=== PATIENT | male | born 1990 | race Caucasian/White ===

== ENCOUNTER 2016-06-16 18:58 | Emergency (ER) | payer BC ==
[2016-06-16 19:22] VITALS: BP 134/85
--- NOTE | 2016-06-16 19:31 | UC ---
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 3 month hx of intermittent right shoulder pain - History of Current Complaint Chief Complaint: UCUpperExtremity Stated Complaint: SHOULDER PAIN Time Seen by Provider: 06/16/16 19:24 Hx Obtained From: Patient Onset/Duration: Gradual Onset, Lasting Days Timing: Constant Severity Initially: Moderate Severity Currently: Moderate Location Of Pain: Is Diffuse Pain Intensity: 4 - at rest Pain Scale Used: 0-10 Numeric Character: Sharp, Dull, Aching Aggravating Factor(s): Movement, Lifting, Internal Rotation, External Rotation, Abduction Alleviating Factor(s): Rest Associated Signs And Symptoms: Positive: Negative Related History: Dominant Hand Right - Allergies/Home Medications Allergies/Adverse Reactions: Allergies Allergy/AdvReac Type Severity Reaction Status Date / Time No Known Allergies Allergy Verified 06/16/16 19:22 PMH/Surg Hx/FS Hx/Imm Hx Previously Healthy: Yes - Surgical History Surgical History: Yes Surgery Procedure, Year, and Place: [facility] - Family History Known Family History: Negative: Cardiac Disease, Hypertension, Diabetes, Blood Disorder - Social History Alcohol Use: Rare Substance Use Type: Marijuana Substance Use Comment - Amount & Last Used: Daily Smoking Status (MU): Smoker, Current Status Unknown Type: Smokeless Tobacco Household Exposure Type: Cigarettes Review of Systems Constitutional: Negative Skin: Negative Eyes: Negative ENT: Negative Respiratory: Negative Cardiovascular: Negative Gastrointestinal: Negative Genitourinary: Negative Motor: Negative Neurovascular: Negative Musculoskeletal: Arthralgia Neurological: Negative Psychological: Negative All Other Systems Reviewed And Are Negative: Yes Physical Exam Triage Information Reviewed: Yes Appearance: Well-Appearing, No Pain Distress, Well-Nourished Vital Signs: Initial Vital Signs Temp 99.4 F 06/16/16 19:18 Pulse 81 06/16/16 19:18 Resp 16 06/16/16 19:18 BP 134/85 06/16/16 19:18 Pulse Ox 98 06/16/16 19:18 Vital Signs Reviewed: Yes Eyes: Positive: Conjunctiva Clear ENT: Positive: Hearing grossly normal, Pharynx normal. Negative: Nasal congestion, TMs normal, Tonsillar exudate, Trismus, Muffled/hoarse voice Neck: Positive: Supple, Nontender Respiratory: Positive: Lungs clear, Normal breath sounds, No respiratory distress Cardiovascular: Positive: RRR, No Murmur Musculoskeletal: Positive: ROM Limited @ - right shoulder-able to abdu, Other: - see image Neurological: Positive: Alert Psychological Exam: Normal Skin Exam: Normal Shoulder Course/Dx - Differential Dx/Diagnosis Provider Diagnoses: right shoulder tendonitis. right rhomboid myofascial strain /spasm Discharge - Discharge Plan Condition: Stable Disposition: HOME Prescriptions: Cyclobenzaprine TAB* [Flexeril 10 MG TAB*] 5 mg PO TID PRN #21 tab PRN Reason: Spasms Naproxen [Naproxen 500 MG TABS] 500 mg PO BID PRN #30 tab PRN Reason: Pain Patient Education Materials: Muscle Strain (ED), Tendinitis (ED) Forms: *Work Release Referrals: [facility] [place] [facility] REFERRAL [Outside] - If Needed Richmond Anna MD [Medical Doctor] - 1 Week (if not better orthopedist) Additional Instructions: rest heat Images Front/Back of Body, Lg ([place]): 1 - tender here 2 - pain here
--- NOTE | 2016-06-16 19:53 | RAD ---
INDICATION: Chronic intermittent right shoulder pain. TECHNIQUE: 3 views of the right shoulder were obtained. FINDINGS: The bones are in normal alignment. No fracture is seen. Joint spaces appear maintained. IMPRESSION: NEGATIVE EXAM.
== END 2016-06-16 19:59 | disposition home or self-care (01) ==
LOC: UCEAST 18:58
DX: M75.91 Shoulder lesion, unspecified, right shoulder (principal); M62.838 Other muscle spasm; F12.90 Cannabis use, unspecified, uncomplicated; F17.210 Nicotine dependence, cigarettes, uncomplicated
CPT/HCPCS: 99212; G0463

== ENCOUNTER 2016-09-08 11:33 | Emergency (ER) | payer BC ==
[2016-09-08 12:05] VITALS: BP 136/78
--- NOTE | 2016-09-08 12:52 | UC ---
UC General HPI - HPI Summary HPI Summary: The patient comes in today for: 1. "I want to be checked for MRSA, weight loss/abdominal pain, ingrown toenail.": Onset: over a year ago. Palliative/provocative: Nothing makes it better or worse. Quality: Dull most of the time. Region: Lower right and lower left and sometimes a navel area with radiation to the anus. Severity: 0/10 Time: Comes and goes--frequency; 3 x/week. It will last an hour or a day. Associated symptoms: 1. MRSA: HE states that he wants to be checked for MRSA because his sister' s boyfriend had it and he has had draining cysts on his hips which are healed. 2. Weight loss: HE states that his original weight was 170 and about 4 months ago, he started to lose weight. He has not been trying to lose weight. He has not changed his eating habits or activity level. HE has not been diagnosed as having diabetes before. However, it runs in his family. He states that more recently, his weight loss has been somewhat steady at 145-150 pounds. He lights eating a lot of candy and drink Mountain Dew. 3. ABdominal pain: See above. He has variable bowel movement--sometimes 3 times a morning. Sometimes it will be 1-2 days before a bowel movement. No change in appearance of the stool. PCP: [facility]--but he has not been there recently. He has one on the of this month. * - History of Current Complaint Chief Complaint: DEWEYkin Stated Complaint: SORE ON HIP Time Seen by Provider: 09/08/16 12:37 Hx Obtained From: Patient, Family/Cook Jelly - Allergy/Home Medications Allergies/Adverse Reactions: Allergies Allergy/AdvReac Type Severity Reaction Status Date / Time No Known Allergies Allergy Verified 09/08/16 12:00 Home Medications: Home Medications NK [No Home Medications Reported] 09/08/16 [History Confirmed 09/08/16] PMH/Surg Hx/FS Hx/Imm Hx Previously Healthy: No - Weight loss. - Surgical History Surgical History: Yes Surgery Procedure, Year, and Place: [facility] - Family History Known Family History: Positive: Hypertension, Diabetes Negative: Cardiac Disease, Blood Disorder - Social History Occupation: Employed Full-time - Engineering Executive Alcohol Use: Rare Substance Use Type: Marijuana Substance Use Comment - Amount & Last Used: Daily-LAST 09/08/16 Smoking Status (MU): Former Smoker Type: Cigarettes, Smokeless Tobacco Amount Used/How Often: CHEW DAILY, 3 CIG/DAY Household Exposure Type: Cigarettes Review of Systems Constitutional: Negative Skin: Negative Eyes: Negative ENT: Negative Respiratory: Negative Cardiovascular: Negative Gastrointestinal: Abdominal Pain All Other Systems Reviewed And Are Negative: Yes Physical Exam Triage Information Reviewed: Yes Appearance: Well-Appearing, No Pain Distress, Well-Nourished Vital Signs: Initial Vital Signs Temp 98.9 F 09/08/16 12:00 Pulse 88 09/08/16 12:00 Resp 18 09/08/16 12:00 BP 136/78 09/08/16 12:00 Pulse Ox 100 09/08/16 12:00 Vital Signs Reviewed: Yes Eyes: Positive: Conjunctiva Clear. Negative: Discharge ENT: Positive: Hearing grossly normal. Negative: Pharyngeal erythema, Nasal congestion, Nasal drainage, TM bulging, TM dull, TM red, Tonsillar swelling, Tonsillar exudate Dental: Negative: Gross Decay/Caries @, Dental Fracture @ Neck: Positive: Supple, Nontender, No Lymphadenopathy. Negative: Nuchal Rigidity Respiratory: Positive: Chest non-tender, Lungs clear, No respiratory distress, No accessory muscle use. Negative: Crackles, Wheezing Cardiovascular: Positive: RRR, No Murmur Abdomen Description: Positive: Nontender, No Organomegaly, Soft. Negative: Distended, Guarding Musculoskeletal: Positive: Strength Intact, ROM Intact, No Edema Neurological: Positive: Alert, Muscle Tone Normal Psychological: Negative: Age Appropriate Behavior, Consolable Skin: Positive: Other - He had two well-healed, hyperpigmented areas--one on each hip--with no active infection. Left big toe: There is no marked swelling or edema. However, there is an incurving nail laterally.. Negative: rashes, breakdown Diagnostics - Laboratory Diagnostic Studies Completed/Ordered: Random blood sugar: 104 Course/Dx - Course Course Of Treatment: Patient of the followin. Since he has no obvious infectious at this time, I told him that I could refer him to I.D. if he wants more information regarding MRSA. At this time, I did not recommend any treatment. 2. Weight loss: He is encouraged to keep a diary of his weight, activity level and his diet. If he keeps losing weight, he will need a work up. 3. Chronic abdominal pain--not at this time. He was also told to monitor this and if it ever persists he should be seen again. 4. Ingrown toe nail: He was told what he can do to lift the nail over the toe skin. - Differential Dx - Multi-Symptom Provider Diagnoses: Chronic abdominal pain. Weight loss. Ingrown toe nail. MRSA questions. Discharge - Discharge Plan Condition: Stable Disposition: HOME Patient Education Materials: MRSA (Methicillin-Resistant Staphylococcus Aureus ) (ED), Chronic Abdominal Pain (ED), Weight Loss Tips for Athletes (ED), Ingrown Nail (ED) Referrals: Rafael Medrano MD [Primary Care Provider] - 1 Week (Please see your primary care provider in about a week to see how well you are doing. If you get worse between now and then, please be seen sooner by us or the ER.)
== END 2016-09-08 14:24 | disposition home or self-care (01) ==
LOC: UCEAST 11:33
DX: G89.29 Other chronic pain (principal); R10.9 Unspecified abdominal pain; R63.4 Abnormal weight loss; L60.0 Ingrowing nail; Z71.1 Person with feared health complaint in whom no diagnosis is made; Z87.891 Personal history of nicotine dependence
CPT/HCPCS: 99211; G0463

== ENCOUNTER 2017-12-01 18:59 | Emergency (ER) | payer BC ==
[2017-12-01 19:16] VITALS: BP 127/70
--- NOTE | 2017-12-01 20:03 | UC ---
Hand/Wrist HPI - HPI Summary HPI Summary: 27 y/o male presents to the urgent care c/o Rt wrist pain w/ a lump for the past month. 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 Painful with movement. Denies any trauma. - History Of Current Complaint Chief Complaint: UCUpperExtremity Stated Complaint: LUMP ON WRIST Hx Obtained From: Patient Mechanism Of Injury: No injury Onset/Duration: Gradual Onset, Lasting Weeks - 4 weeks, Still Present, Worse Since - last week Severity Initially: Mild Severity Currently: Mild Pain Intensity: 3 Pain Scale Used: 0-10 Numeric Character Of Pain: Dull, Aching Aggravating Factor(s): Movement, Lifting, Extension, Other - touch Alleviating Factor(s): OTC Meds Associated Signs And Symptoms: Positive: Swelling - mild, Numbness/Tingling - at times. Negative: Redness, Bruising, Weakness Related History: Dominant Hand Right - Allergies/Home Medications Allergies/Adverse Reactions: Allergies Allergy/AdvReac Type Severity Reaction Status Date / Time No Known Allergies Allergy Verified 12/01/17 19:12 PMH/Surg Hx/FS Hx/Imm Hx Previously Healthy: Yes - Pt denies PMHX - Surgical History Surgical History: Yes Surgery Procedure, Year, and Place: [facility] 2013 - Family History Known Family History: Positive: Hypertension, Diabetes Negative: Cardiac Disease, Blood Disorder - Social History Occupation: Employed Full-time Lives: With Family Alcohol Use: None Substance Use Type: Marijuana Substance Use Comment - Amount & Last Used: daily Smoking Status (MU): Former Smoker Type: Cigarettes, Smokeless Tobacco Amount Used/How Often: 5 cigs per day Household Exposure Type: Cigarettes - Immunization History Most Recent Tetanus Shot: 2017 Review of Systems Constitutional: Negative Skin: Other - bump w/ mild swelling in the Rt wrist Eyes: Negative ENT: Negative Respiratory: Negative Cardiovascular: Negative Gastrointestinal: Negative Genitourinary: Negative Motor: Negative Neurovascular: Negative Musculoskeletal: Decreased ROM - RT wrist, Other: - Rt wrist pain w/ a lump Neurological: Negative Psychological: Negative Is Patient Immunocompromised?: No All Other Systems Reviewed And Are Negative: Yes Physical Exam - Summary Physical Exam Summary: Vital Signs Reviewed: Yes General: Well-Appearing, No Pain Distress, Well-Nourished male w/o any apparent distress Eyes: Positive: Conjunctiva Clear - PERRLA, EOMI ENT: Positive: Normal ENT inspection, Hearing grossly normal, Pharynx normal, TMs normal, Uvula midline Neck: Positive: Supple, Nontender, No Lymphadenopathy Respiratory: Positive: Chest non-tender, Lungs clear, Normal breath sounds, No respiratory distress Cardiovascular: Positive: RRR, No Murmur, Pulses Normal, Brisk Capillary Refill Abdomen Description: Positive: Nontender, No Organomegaly, Soft. Negative: CVA Tenderness (R), CVA Tenderness (L) Bowel Sounds: Positive: Present Musculoskeletal: Positive: Strength Intact, Other: Neurological Exam: Normal Musculoskeletal: Positive: Wrist: the R wrist is without obvious asymmetry or deformity when compared to the L wrist. No surface trauma, open wounds, swelling, or obvious deformity. No overlying erythema or warmth. No bony crepitus. Point tenderness over the thenar eminence and ventral side of wrist. No scaphoid fullness or tenderness to direct palpation or axial load. Decreased ROM due to pain. Motor/sensory function of ulnar, radial, median nerves intact. Ulnar and radial pulses intact. Psychological Exam: Normal Skin Exam: Normal Triage Information Reviewed: Yes Vital Signs: Initial Vital Signs Temp 99.1 F 12/01/17 19:12 Pulse 72 12/01/17 19:12 Resp 18 12/01/17 19:12 BP 127/70 12/01/17 19:12 Pulse Ox 99 12/01/17 19:12 Hand/Wrist Course/Dx - Differential Dx/Diagnosis Provider Diagnoses: 1- left hand ganglyon cyst Discharge - Sign-Out/Discharge Documenting (check all that apply): Patient Departure - D/c home All imaging exams completed and their final reports reviewed: No - Discharge Plan Condition: Stable Disposition: HOME Prescriptions: Ibuprofen TAB* [Motrin TAB* 600 MG] 600 mg PO Q6H PRN #30 tab PRN Reason: Pain Patient Education Materials: Ganglion Cysts (ED) Forms: *Work Release Referrals: [facility] [place] [facility]IAN REFERRAL [Outside] - 1 Week Sherin Luna MD [Medical Doctor] - 1 Week Additional Instructions: 1-Please take medications as directed to alleviate pain and swelling. 2-Please apply ice, and massage keep your wrist immobilized with the splint. Avoid heavy lifting. 3- Please f/u with Orthopedic Dr luna or your PCP in 1 week is not improvement of symptoms for further evaluation and treatment. - Billing Disposition and Condition Condition: STABLE Disposition: Home
--- NOTE | 2017-12-02 07:14 | RAD ---
INDICATION: Right wrist lump. TECHNIQUE: 3 views of the right wrist were obtained. FINDINGS: The bones are in normal alignment. No fracture is seen. Joint spaces appear maintained. No soft tissue calcifications are noted. IMPRESSION: NO EVIDENCE FOR FRACTURE. R0
--- NOTE | 2017-12-02 09:58 | UC ---
- Progress Note Progress Note: XR: IMPRESSION: NO EVIDENCE FOR FRACTURE. No change in plan of care Discharge - Sign-Out/Discharge Documenting (check all that apply): Post-Discharge Follow Up All imaging exams completed and their final reports reviewed: Yes - Discharge Plan Condition: Stable Disposition: HOME Prescriptions: Ibuprofen TAB* [Motrin TAB* 600 MG] 600 mg PO Q6H PRN #30 tab PRN Reason: Pain Patient Education Materials: Ganglion Cysts (ED) Forms: *Work Release Referrals: [facility] [place] [facility]IAN REFERRAL [Outside] - 1 Week Sherin Luna MD [Medical Doctor] - 1 Week Additional Instructions: 1-Please take medications as directed to alleviate pain and swelling. 2-Please apply ice, and massage keep your wrist immobilized with the splint. Avoid heavy lifting. 3- Please f/u with Orthopedic Dr luna or your PCP in 1 week is not improvement of symptoms for further evaluation and treatment. - Billing Disposition and Condition Condition: STABLE Disposition: Home
== END 2017-12-01 20:55 | disposition home or self-care (01) ==
LOC: UCEAST 18:59
DX: M67.442 Ganglion, left hand (principal); Z87.891 Personal history of nicotine dependence
CPT/HCPCS: 99213; G0463

== ENCOUNTER 2018-11-25 15:44 | Emergency (ER) | payer BC, OTHER ==
[2018-11-25 15:52] VITALS: BP 143/93
[2018-11-25] MEDS ORDERED: Lidocaine 1% MPF ** 5 ML VIAL INJ ONE (16:45)
--- NOTE | 2018-11-25 17:59 | ED ---
Head Injury - HPI Summary HPI Summary: Patient is a 28-year-old male who presents emergency department for head injury that occurred just prior to arrival. 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 Patient denies loss of consciousness. Associated symptoms of laceration to scalp. Symptoms are mild in severity. Touching it makes symptoms worse. Rest makes symptoms better. - History Of Current Complaint Chief Complaint: EDHeadInjury Stated Complaint: HEAD INJURY PER PT Time Seen by Provider: 11/25/18 16:35 Pain Intensity: 2 Pain Scale Used: 0-10 Numeric - Allergies/Home Medications Allergies/Adverse Reactions: Allergies Allergy/AdvReac Type Severity Reaction Status Date / Time No Known Allergies Allergy Verified 11/25/18 15:50 PMH/Surg Hx/FS Hx/Imm Hx Previously Healthy: Yes Neurological History: Denies: Hx Headaches - WORSE SINCE INJURY - Surgical History Surgery Procedure, Year, and Place: [facility] 2013 Infectious Disease History: No Infectious Disease History: Denies: Traveled Outside the in Last 30 Days - Family History Known Family History: Positive: Hypertension, Diabetes, Non-Contributory Negative: Cardiac Disease, Blood Disorder - Social History Occupation: Employed Full-time Lives: With Family Alcohol Use: None Substance Use Type: Reports: Marijuana Substance Use Comment - Amount & Last Used: daily Smoking Status (MU): Former Smoker Type: Cigarettes, Smokeless Tobacco Amount Used/How Often: 5 cigs per day Review of Systems Eyes: Negative Negative: Photophobia, Blurred Vision ENT: Negative Gastrointestinal: Negative Negative: Vomiting, Nausea Positive: Other - scalp laceration Neurological: Negative Negative: Headache, Weakness, Paresthesia, Numbness, Syncope All Other Systems Reviewed And Are Negative: Yes Physical Exam Triage Information Reviewed: Yes Vital Signs On Initial Exam: Initial Vitals Temp Pulse Resp BP Pulse Ox 99.1 F 90 18 143/93 100 11/25/18 15:50 11/25/18 15:50 11/25/18 15:50 11/25/18 15:50 11/25/18 15:50 Vital Signs Reviewed: Yes Appearance: Positive: Well-Appearing - Pt. sitting on bed in NAD. SO present. Skin: Positive: Warm, Dry Head/Face: Positive: Other - 2cm linear laceration to the top of the head. No kee deformity. Eyes: Positive: Normal, EOMI, [place] Neck: Positive: Supple, Nontender Musculoskeletal: Positive: Normal, Strength/ROM Intact Neurological: Positive: Normal, Alert, Oriented to Person Place, Time, CN Intact II-III Psychiatric: Positive: Affect/Mood Appropriate Procedures - Laceration/Wound Repair 1 Location: head Description: Linear Anesthesia: Local, 1.0%, [place] Length, Depth and Shape: 2cm linear Irrigated w/ Saline (ccs): 100 Laceration/Wound Explored: clean Closure: Single Layer, [place] #__ - 3 Layer Closure?: No Sterile Dressing Applied?: No Diagnostics - Vital Signs Vital Signs Temp Pulse Resp BP Pulse Ox 11/25/18 17:06 99.1 F 90 16 143/93 100 11/25/18 15:50 99.1 F 90 18 143/93 100 - Laboratory Lab Statement: Any lab studies that have been ordered have been reviewed, and results considered in the medical decision making process. Head Injury Course/Dx Course Of Treatment: Patient presenting after minor head injury. No neurological deficits. Wound was closed as noted above. Patient notes his last tetanus was within 5 years. Staple removal in 5 days. Keep the wound clean and dry. Tylenol Motrin pain as directed. Ice intermittently. To return to the ER symptoms change or worsen. Patient understands and agrees with plan. - Diagnoses Differential Diagnosis/HQI/PQRI: Cerebral Contusion, Concussion Without LOC, Laceration Provider Diagnoses: Scalp laceration, Head injury Discharge ED - Sign-Out/Discharge Documenting (check all that apply): Patient Departure Patient Received Moderate/Deep Sedation with Procedure: No - Discharge Plan Condition: Improved Disposition: HOME Patient Education Materials: Head Injury (ED), Staple Care (ED) Referrals: [facility] [Outside] Additional Instructions: Staple removal in 5 days Keep wound clean and dry Ice intermittently Tylenol or Motrin for pain as directed Return to ER for redness, swelling, drainage, or if concerned - Billing Disposition and Condition Condition: IMPROVED Disposition: Home
== END 2018-11-25 17:06 | disposition home or self-care (01) ==
LOC: ED 15:44
DX: S01.01XA Laceration without foreign body of scalp, initial encounter (principal); W22.8XXA Striking against or struck by other objects, initial encounter; Y92.513 Shop (commercial) as the place of occurrence of the external cause; Y99.0 Civilian activity done for income or pay; Z87.891 Personal history of nicotine dependence
CPT/HCPCS: 12011; 99282

== ENCOUNTER 2018-12-01 20:34 | Emergency (ER) | payer OTHER ==
[2018-12-01 20:42] VITALS: BP 148/85
--- NOTE | 2018-12-01 21:09 | ED ---
Skin Complaint - HPI Summary HPI Summary: Pt. is a 28 y.o male who presents to the ER for staple removal. Pt. seen in ED 6 days ago after a head injury and had 3 marlo placed to scalp. Pt. denies any complaints today and has been feeling well. Sxs are mild in severity. No current modifying factors. - History of Current Complaint Chief Complaint: EDLacSutureRecheck Time Seen by Provider: 12/01/18 21:08 Stated Complaint: NEED STITCHES REMOVED FROM TOP OF HEAD PER PT Hx Obtained From: Patient Pain Intensity: 0 - Allergy/Home Medications Allergies/Adverse Reactions: Allergies Allergy/AdvReac Type Severity Reaction Status Date / Time No Known Allergies Allergy Verified 11/25/18 15:50 Home Medications: Home Medications NK [No Home Medications Reported] 12/01/18 [History Confirmed 12/01/18] PMH/Surg Hx/FS Hx/Imm Hx Previously Healthy: Yes Neurological History: Denies: Hx Headaches - WORSE SINCE INJURY - Surgical History Surgery Procedure, Year, and Place: [facility] 2013 Infectious Disease History: No Infectious Disease History: Denies: Traveled Outside the [place] in Last 30 Days - Family History Known Family History: Positive: Hypertension, Diabetes, Non-Contributory Negative: Cardiac Disease, Blood Disorder - Social History Occupation: Employed Full-time Lives: With Family Alcohol Use: None Substance Use Type: Reports: Marijuana Substance Use Comment - Amount & Last Used: daily Smoking Status (MU): Former Smoker Type: Cigarettes, Smokeless Tobacco Amount Used/How Often: 5 cigs per day Review of Systems Positive: Other - marlo to scalp Neurological: Negative All Other Systems Reviewed And Are Negative: Yes Physical Exam Triage Information Reviewed: Yes Vital Signs On Initial Exam: Initial Vitals Temp Pulse Resp BP Pulse Ox 98.5 F 90 18 148/85 98 12/01/18 20:36 12/01/18 20:36 12/01/18 20:36 12/01/18 20:36 12/01/18 20:36 Vital Signs Reviewed: Yes Appearance: Positive: Well-Appearing - Pt. sitting on bed in NAD. Skin: Positive: Warm, Dry Head/Face: Positive: Other - 3 marlo to top of scalp. Wound approximated. No erythema, edema, or drainage. Eyes: Positive: Normal, EOMI Neck: Positive: Supple Neurological: Positive: Normal, CN Intact II-III Psychiatric: Positive: Affect/Mood Appropriate Procedures - Procedure Summary Procedure Summary: Staple removal: 3 marlo were removed from scalp wound with staple remover. Pt. tolerated well. Wound approximated without signs of infection. Performed by myself. Diagnostics - Vital Signs Vital Signs Temp Pulse Resp BP Pulse Ox 12/01/18 20:36 98.5 F 90 18 148/85 98 - Laboratory Lab Statement: Any lab studies that have been ordered have been reviewed, and results considered in the medical decision making process. Course/Dx - Course Course Of Treatment: Marlo removed as noted above. No signs of infection. Advised pt. to continue wound care. - Diagnoses Provider Diagnoses: Removal of marlo Discharge ED - Sign-Out/Discharge Documenting (check all that apply): Patient Departure Patient Received Moderate/Deep Sedation with Procedure: No - Discharge Plan Condition: Improved Disposition: HOME Patient Education Materials: Acute Wound Care (ED) Referrals: [facility] [place] [facility]IAN REFERRAL [Outside] Additional Instructions: Continue wound care Return to ER if symptoms change or worsen - Billing Disposition and Condition Condition: IMPROVED Disposition: Home
== END 2018-12-01 21:15 | disposition home or self-care (01) ==
LOC: ED 20:34
DX: S01.91XD Laceration without foreign body of unspecified part of head, subsequent encounter (principal); X58.XXXD Exposure to other specified factors, subsequent encounter; Z48.02 Encounter for removal of sutures
CPT/HCPCS: 99282